=== PATIENT | female | born 1990 | race African-American/Black ===

== ENCOUNTER 2020-08-05 11:24 | Outpatient (CLI) | payer OTHER, SELFPAY | END 2020-08-05 11:25 | disposition home or self-care (01) | LOC: ANHSURGERY 11:27 | PROVIDERS: Visit Provider Obstetrics & Gynecology | DX: N80.9 Endometriosis, unspecified (principal) | CPT/HCPCS: 36415; 86850; 86900; 86901 ==

== ENCOUNTER 2020-08-12 00:31 | Outpatient (CLI) | payer OTHER, SELFPAY ==
[2020-08-12 18:12] LABS: SARS-CoV-2 RNA PCR Negative
== END 2020-08-12 00:32 | disposition home or self-care (01) ==
LOC: ANHCOVIDDT 00:32
PROVIDERS: Visit Provider Obstetrics & Gynecology
DX: Z01.812 Encounter for preprocedural laboratory examination (principal); Z20.828 Contact with and (suspected) exposure to other viral communicable diseases
CPT/HCPCS: 87635; C9803; U0003

== ENCOUNTER 2020-08-14 12:28 | Inpatient (IN) | payer OTHER, SELFPAY ==
[2020-07-30 10:40] VITALS: BMI 25.9
[2020-08-14] VITALS (15 sets, daily range): BP systolic 99–111; BP diastolic 37–72; PULSE 71–99; RESP 16–23; TEMP 36.3–37.2; O2SAT 93–100
[2020-08-14] MEDS: LACTATED RINGERS 1,000 ML 30 ML IV CONT ×2 (06:50→10:35)
[2020-08-14] MEDS: KETOROLAC 15 MG/ML VIAL (*BKC) IV PUSH (06:50)
[2020-08-14] MEDS: ACETAMINOPHEN 500 MG TABLET 1000 MG PO (06:50)
--- NOTE | 2020-08-14 07:46 | WPDANESEPPF ---
Anes - Initial Pre Proc Eval Procedure: Operation Date: 08/14/20 08:30 Proposed Procedures p Total Laparoscopic Hysterectomy - Quincy Torres MD Date/Time: 08/14/20 07:46 Surgeon: Quincy Torres MD Pre Op Diagnosis: Endometriosis Of Pelvis Patient Data Age: 29 Gender: F Height: 5 ft 2 in Weight: 62.3 kg Last Vital Signs Temp 36.3 C L 08/14/20 06:30 Pulse 71 08/14/20 06:30 Resp 18 08/14/20 06:30 BP 99/37 L 08/14/20 06:30 Pulse Ox 100 08/14/20 06:30 Allergies Allergy/AdvReac Type Severity Reaction Status Date / Time phenobarbital Allergy seizures Verified 08/14/20 07:31 Home Medications Medication Instructions Recorded Confirmed Type hydrocodone-acetaminophen 1 tablet PO Q6H PRN 07/30/20 08/14/20 History Patient hx anesthesia problems: none Family hx anesthesia problems: none PMFSH Past Medical History Medical History (Updated 08/14/20 @ 07:51 by Mike Samano MD) Endometriosis Surgical History Surgical History (Updated 08/14/20 @ 07:51 by Mike Samano MD) H/O laparoscopy History of section Social History Social History Smoking status: Never smoker Spiritual care concerns: No Anes - Eval Final PreProcedure Day of Procedure 08/14/20 07:46 Patient weight: normal Heart: regular rate and rhythm Lungs: clear to auscultation Airway: Mallampati scale class 1 Neurological: alert and oriented Last oral intake: >/= 8 hours ASA classification: II Emergent: no Anesthetic plan: proceed Anesthesia type and monitoring: general ETT and standard monitoring Informed Consent: The patient's anesthetic plan and its attendant risks and benefits were discussed with the patient/family/POA. Questions were solicited and answers provided to the satisfaction of the patient/family/POA.
--- NOTE | 2020-08-14 08:02 | WPDHPUPDATE1 ---
History and Physical Update Update Date/Time: 08/14/20 08:02 History and Physical has been reviewed, including an updated exam of the patient. There are NO changes in the patient's condition. Risks, benefits, and alternatives have been discussed and questions answered. Patient agrees to proceed with procedure.
[2020-08-14] MEDS: ceFAZolin 2 GM/D5W 50 ML 2 GM/50 ML BAG IVPB (08:32)
--- NOTE | 2020-08-14 10:34 | P.OP_ITS ---
Procedure Note - Detailed Date of procedure: 08/14/20 Pre-op diagnosis: Endometriosis Of Pelvis Myoma, menorrhagia Post-op diagnosis: same Procedure performed: Total laparoscopic hysterectomy. Description of procedure: The patient was taken to the operating room. She was prepped and draped in the dorsal lithotomy position. A speculum was placed in the vagina. The cervix was grasped with a tenaculum. Stay sutures were placed at 3 and 9:00 a.m. of 0 Vicryl. The stay sutures were brought through the Marisa up. The LEAH manipulator was placed in the vagina with a fixed Marisa cup. The cup was then pushed up around the cervix. The sutures were tied to the handle of the LEAH manipulator. A 5 mm incision was made on the abdominal skin of the left upper quadrant using a scalpel. A 5 mm trocar was inserted into the intra-abdominal cavity under direct visualization the scope. Pneumoperitoneum was achieved. An 11 mm incision was made in the left lower quadrant of the abdomen with a scalpel. A 11 mm trocar was inserted into the intra-abdominal cavity under direct visualization the scope. A 5 mm periumbilical incision was made. A 5 mm scope was placed into the intra-abdominal cavity under direct visualization of the scope. The suspensory ligament of the ovary was cauterized and transected with ligature cautery in a bilateral fashion. The fallopian tubes were cauterized and transected in a bilateral fashion with LigaSure cautery. The round ligaments were cauterized and transected in bilateral fashion with LigaSure cautery. The round ligaments were cauterized and transected bilaterally with LigaSure cautery. The broad ligaments were cauterized and transected along the lateral aspects of the uterus down the level of the uterine arteries. A bladder flap was created using sharp and blunt dissection. The ureters were dissected out bilaterally down to the level of the uterine arteries. They could be visualized from the pelvic brim down the uterine arteries. Staying very close to the c ervix the parametrium was cauterized transected in a stepwise fashion down to the level of the Marisa cup. The Bladder flap was moved distally over the Marisa cup using sharp and blunt dissection. The impression of the entire cup was visualized around the cervix. An incision was made with unipolar cautery down under the Marisa cup creating a colpotomy incision all the way around the cervix. The uterus tubes and ovaries were taken out through the vagina. A pneumo occluder was placed in the vagina. The vagina was closed with 0 V lock suture in a running fashion. The ureters were identified again and found to be intact to the level of the uterine arteries. The pelvis was irrigated with a copious amount of antibiotic irrigation. The pneumoperitoneum was reduced. The trocars were removed. The skin was closed subcuticular 4 Monocryl covered with Dermabond. The pneumo occluder was removed from the vagina. The vagina was irrigated with Betadine. The patient tolerated the procedure well. She was taken to the recovery room in stable condition. Sponge lap and needle counts were correct x2. Anesthesia: GETA Surgeon: Quincy Torres MD Estimated blood loss (mL): 200 Drains: No Packing: No Pathology: yes Complications: No immediate complications Condition: stable Disposition: PACU Findings: Grossly normal appearing tubes and ovaries. Uterus - enlarged
[2020-08-14] MEDS: fentaNYL CITRATE INJ (*CRX) 100 MCG/2 ML VIAL 25 MCG IV PUSH (11:28)
--- NOTE | 2020-08-14 12:01 | SUR.PHASEI ---
1139-REPORT FAXED TO FLOOR, STAFF ([facility]) AWARE AND WILL INFORM RN. 1200-RECALLED OB ([facility]), RN BUSY.
[2020-08-14] MEDS: SODIUM CHLORIDE 0.9% IV 1,000 ML 125 ML IV CONT ×2 (13:21→19:56)
[2020-08-14] MEDS: KETOROLAC 30 MG/ML VIAL (*BKC) IV PUSH ×2 (13:22→19:53)
[2020-08-14] MEDS: ONDANSETRON INJ 4 MG/2 ML VIAL IV PUSH ×2 (16:01→22:42)
[2020-08-14] MEDS: HYDROcodone/acetaminophen (*CRX) 10-325 MG TABLET 1 TAB PO (16:16)
--- NOTE | 2020-08-14 18:28 | PC.NURSE ---
Pt admitted to room 289 per bed from PACU after lap assisted vaginal hyst today with Dr. Torres. Pt is alone at this time; admitted to room; staffing and procedures explained; pt sleepy, but responding appropriately; VSS and assessment WNL.
--- NOTE | 2020-08-14 18:51 | PC.NURSE ---
1730 pt states she didn't want to eat anything at this time; no supper ordered; pt had emesis at 1720 and states felt better afterward; will restart po fluids slowly.
[2020-08-14] MEDS: fentaNYL CITRATE INJ (*CRX) 100 MCG/2 ML VIAL 50 MCG IV PUSH ×2 (18:59→22:42)
[2020-08-14] MEDS: SIMETHICONE 80 MG TAB.CHEW (19:22)
[2020-08-15 00:30] VITALS: BP 101/61; PULSE 83; RESP 16; TEMP 37.4; O2SAT 100
[2020-08-15] MEDS: fentaNYL CITRATE INJ (*CRX) 100 MCG/2 ML VIAL 50 MCG IV PUSH (03:53)
[2020-08-15 04:00] VITALS: BP 109/66; PULSE 73; RESP 16; TEMP 37.2; O2SAT 98
[2020-08-15 08:25] VITALS: BP 107/67; PULSE 75; RESP 18; TEMP 37.2; O2SAT 99
[2020-08-15] MEDS: KETOROLAC 30 MG/ML VIAL (*BKC) IV PUSH (09:11)
--- NOTE | 2020-08-15 09:18 | WPDANESPN ---
Anes - Prog Note Post-Op Date/Time: 08/15/20 09:18 Cardiovascular status: normal Respiratory status: normal Airway patency: baseline Mental status: baseline Post-Op hydration status: normal Vital Signs: Last Vital Signs Temp 37.2 C 08/15/20 04:00 Pulse 73 08/15/20 04:00 Resp 16 08/15/20 04:00 BP 109/66 08/15/20 04:00 Pulse Ox 98 08/15/20 04:00 Pain Score (VAS): 0 I/O: Intake & Output 08/14/20 08/15/20 08/15/20 23:59 07:59 15:59 Intake Total 1500 300 Output Total 760 1000 Balance 740 -700 Post-procedural complaints: none Patient Feedback: Patient satisfied with anesthetic care.
--- NOTE | 2020-08-15 12:00 | WPDHPUPDATE1 ---
History and Physical Update Update Date/Time: 08/15/20 12:00 History and Physical has been reviewed, including an updated exam of the patient. There are NO changes in the patient's condition. Risks, benefits, and alternatives have been discussed and questions answered. Patient agrees to proceed with procedure.
--- NOTE | 2020-09-06 07:51 | PM.DS ---
DS: Admitting Diagnosis Admitting Diagnosis Admitting Diagnosis: Endometriosis Of Pelvis DS: Discharge Diagnosis Discharge Diagnosis (1) Menorrhagia: Code(s): N92.0 - Excessive and frequent menstruation with regular cycle Status: Acute DS: Summary Hospital Course Reason for hospitalization: total laparoscopic hysterectomy Hospital Course: unremarkable, she is hospitalized for less than 24 hours. She was afebrile, her pain was well controlled, she was ambulating, tolerating p.o., passing flatus at appropriate times. Status at Discharge Functional status at discharge: independent ambulation Time Spent with Patient Time attestation: Total time spent providing and/or coordinating discharge services: Time spent: Less than 30 minutes DS: Data Data Completed and Pending Completed studies during hospitalization: Pending at discharge 08/14/20 09:37 Surgical [PTH] Routine Discharge Plan Discharge Discharging Clinician: Quincy Torres Patient Disposition: Home, Self-Care Activity: pelvic rest Diet: regular Patient Instructions: Hysterectomy (DC) Stand Alone Forms: General Discharge Information Follow-up/Referrals: Quincy Torres MD [Physician] - Discharge Medications: New hydrocodone-acetaminophen 5-325 mg tablet 1 - 2 tablet PO Q4H PRN (Reason: pain) Qty: 25 RF: 0 Discontinued hydrocodone-acetaminophen 5-325 mg tablet 1 tablet PO Q6H PRN (Reason: Pain) RF: 0 Date of admission: 08/14/20 12:28 Primary Care Provider: ElenitaHolli Admitting Provider: Quincy Torres Attending physician on admission: Quincy Torres Condition: Stable
== END 2020-08-15 12:14 | disposition home or self-care (01) | DRG 513 ==
LOC: ANHOB2 13:19
PROVIDERS: Admitting Provider Obstetrics & Gynecology; PCP Internal Medicine Infectious Disease; Visit Provider Obstetrics & Gynecology
PROC: 0UT9FZZ Resection of Uterus, Via Natural or Artificial Opening With Percutaneous Endoscopic Assistance (ICD-10-PCS; principal; 2020-08-14 08:30)
DX: N80.3 Endometriosis of pelvic peritoneum (principal); N92.0 Excessive and frequent menstruation with regular cycle; T83.32XA Displacement of intrauterine contraceptive device, initial encounter
CPT/HCPCS: 88307; A9270; J0690; J1100; J1170; J1885; J2250; J2405; J2704; J2710; J3010; J7030; J7120

== ENCOUNTER → 2021-03-05 07:09 | Outpatient (CLI) | payer OTHER, SELFPAY ==
[2021-03-05 18:21] LABS: SARS-CoV-2 RNA PCR Negative
== END ==
PROVIDERS: Visit Provider Obstetrics & Gynecology
DX: Z20.822 Contact with and (suspected) exposure to COVID-19 (principal)
CPT/HCPCS: C9803; U0003; U0005

== ENCOUNTER 2021-09-04 11:00 | Outpatient (RCR) | payer OTHER, SELFPAY ==
--- NOTE | 2021-07-22 12:13 | PTOPEVAL ---
INITIAL PHYSICAL THERAPY EVALUATION and PLAN OF CARE Thank you for referring Sharmaine Ortiz to [facility] [place] [facility] [place] Sharmaine is scheduled to be seen for physical therapy? 2x/week for 2 weeks, 1x/wk x 4 wks. Please review, sign, date and return this plan of care PANCHITO. I agree with and certify that the following plan of care is medically necessary. Referring Physician Date Admitting Provider: Attending Provider: Cassidy Bishop, GRILL ASSOCIATE Referring Provider: *PT Outpatient Evaluation Start: 07/22/21 10:42 Freq: Status: Active Protocol: Document 07/22/21 10:43 DALLIN (Rec: 07/22/21 12:13 DALLIN [id number]) Therapy Assessment Status Assessment Status Assessment Status Evaluation Outpatient Past Medical History Past Medical History Source of Past Medical History Recalled from Previous Visit, Confirmed with Patient/Family Neurological History Hx Seizures Yes: DURING ONLY- 2007 Cardiovascular History Hx Cardiac Disorders No Significant History Respiratory History Hx Asthma Yes: CHILD Gastrointestinal History Hx Gastrointestinal Disorders No Significant History Genitourinary History Hx Urinary Tract Infection Yes Musculoskeletal History Hx Musculoskeletal Disorders No Significant History Hematological History Hx Hematological Disorders No Significant History Endocrine History Hx Endocrine Disorders No Significant History HEENT History Hx HEENT Disorders No Significant History Integumentary History Hx Skin Disorders No Significant History Reproductive History Hx Section Yes: X3 Hx Endometriosis Yes: DX LAPAROSCOPY Hx Hysterectomy Yes: 08/2020 Hx Tubal Ligation Yes Psychosocial History Hx Psychiatric Disorders No Significant History Pain History History of Any Previous or Ongoing No Significant History Instance of Pain Anesthesia History Hx Anesthesia Reactions No Significant History Evaluation Information Problem Diagnosis chronic pelvic pain of female, pelvic and perineal pain, deep dyspareunia, Onset 2013 Subjective Information Had IUD - it turned - was in Query Text:As Reported By Patient/ incorrect position - needed to Family have it removed - that's when pain began. Initially thought pain was from endometriosis - surgery didn't help - it returned - then hysterectomy - still having the discomfort - returned
--- NOTE | 2021-07-22 16:20 | PTOPEVAL ---
INITIAL PHYSICAL THERAPY EVALUATION and PLAN OF CARE Thank you for referring Sharmaine Ortiz to [facility].? Sharmaine is scheduled to be seen for physical therapy? 2x/week for 2 weeks, 1x/wk x 4 wks. Please review, sign, date and return this plan of care PANCHITO. I agree with and certify that the following plan of care is medically necessary. Referring Physician Date Admitting Provider: Attending Provider: Cassidy Bishop, KNAPSACK SPRAYER Referring Provider: *PT Outpatient Evaluation Start: 07/22/21 10:42 Freq: Status: Active Protocol: Document 07/22/21 10:43 DALLIN (Rec: 07/22/21 12:13 DALLIN [id number]) Therapy Assessment Status Assessment Status Assessment Status Evaluation Outpatient Past Medical History Past Medical History Source of Past Medical History Recalled from Previous Visit, Confirmed with Patient/Family Neurological History Hx Seizures Yes: DURING ONLY- 2007 Cardiovascular History Hx Cardiac Disorders No Significant History Respiratory History Hx Asthma Yes: CHILD Gastrointestinal History Hx Gastrointestinal Disorders No Significant History Genitourinary History Hx Urinary Tract Infection Yes Musculoskeletal History Hx Musculoskeletal Disorders No Significant History Hematological History Hx Hematological Disorders No Significant History Endocrine History Hx Endocrine Disorders No Significant History HEENT History Hx HEENT Disorders No Significant History Integumentary History Hx Skin Disorders No Significant History Reproductive History Hx Section Yes: X3 Hx Endometriosis Yes: DX LAPAROSCOPY Hx Hysterectomy Yes: 08/2020 Hx Tubal Ligation Yes Psychosocial History Hx Psychiatric Disorders No Significant History Pain History History of Any Previous or Ongoing No Significant History Instance of Pain Anesthesia History Hx Anesthesia Reactions No Significant History Evaluation Information Problem Diagnosis chronic pelvic pain of female, pelvic and perineal pain, deep dyspareunia, Onset 2013 Subjective Information Had IUD - it turned - was in Query Text:As Reported By Patient/ incorrect position - needed to Family have it removed - that's when pain began. Initially thought pain was from endometriosis - surgery didn't help - it returned - then hysterectomy - still having the discomfort - returned
--- NOTE | 2021-08-05 11:23 | PCPTNOTE ---
Patient did not show up for scheduled appointment this date. Phone call made - no answer, no voice mail set up.
--- NOTE | 2021-08-07 11:57 | PCPTNOTE ---
Patient did not show up for scheduled appointment this date. Called pt - phone unable to accept calls at this time. No voice mail.
--- NOTE | 2021-08-26 08:15 | PCPTNOTE ---
Pt called this morning to cancel 8am appt. per racing secretary.
--- NOTE | 2021-09-04 11:37 | PCPTNOTE ---
Patient did not show up for scheduled appointment this date. This was her re-evaluation date. If we do not hear from her, will d/c her from PT.
--- NOTE | 2021-09-16 08:36 | PCPTNOTE ---
PHYSICAL THERAPY DISCHARGE SUMMARY Admitting Provider: Attending Provider: Cassidy Bishop, HEALTH CARE SPECIALIST Patient:Sharmaine Ortiz Date of :1990 Sharmaine has not returned for any further treatments since 08/21/2021, therefore she will be discharged at this time. Patient?s initial visit was on 07/22/2021 10:30 and she had a total of 3 visits. She cancelled 2 visits and did not show for 4 visits including her re-evaluation. The goals have not been met. She did received short term relief of discomfort with treatment but was very inconsistent with attending PT treatment. Thank you for referring Sharmaine to [facility]. Please review, sign, date and return this discharge summary PANCHITO. I have been updated about Sharmaine's current status and I agree with discharge from the above service at this time. Referring Physician Date
== END 2021-09-16 11:53 | disposition home or self-care (01) ==
LOC: ANHPT 11:00
PROVIDERS: Visit Provider Nurse Practitioner Obstetrics & Gynecology
DX: R10.2 Pelvic and perineal pain (principal)
CPT/HCPCS: 97014; 97140; 97162; G0283

== ENCOUNTER 2021-12-23 09:51 | Outpatient (CLI) | payer OTHER, SELFPAY ==
--- NOTE | ~2021-12-23 | MMUS_ITS ---
EXAMINATION: MM diagnostic shruthi LT w denisse, US breast LT limited HISTORY: Palpable left breast abnormality TECHNIQUE: Additional 3-D tomosynthesis images of the left breast were performed and synthetic 2-D im ages were generated. CAD analysis was submitted and interpreted. High resolution Limited left breast ultrasound was performed. COMPARISON: None BREAST PARENCHYMAL COMPOSITION: The breasts are extremely dense, which lowers the sensitivity of mamm ography FINDINGS: MAMMOGRAPHIC FINDINGS: There are no suspicious masses, calcifications or architectural distortion in the left breast to sugg est malignancy. ULTRASOUND: Complete US of all 4 quadrants of the the left breast and retroareolar region was reviewed. Normal he terogeneous echotexture without focal mass. IMPRESSION: 1. No evidence for malignancy in the left breast. BI-RADS Category 1: Negative Reviewed, dictated and finalized at location A. IC HEALTH PROFESSOR IMPRESSION: 1. No evidence for malignancy in the left breast. BI-RADS Category 1: Negative
== END 2021-12-23 09:52 | disposition home or self-care (01) ==
LOC: ANHIMG 09:53
PROVIDERS: Visit Provider Nurse Practitioner Obstetrics & Gynecology
DX: N63.20 Unspecified lump in the left breast, unspecified quadrant (principal)
CPT/HCPCS: 76642; 77061; 77065; G0279

== ENCOUNTER 2023-09-16 11:00 | Outpatient (RCR) | payer OTHER, SELFPAY ==
--- NOTE | 2023-09-02 10:47 | OPREHPOC ---
Outpatient Therapy Plan of Care This is a Multidisciplinary Plan of Care that may contain components documented by all disciplines (PT, OT, and ST.) PT Problem 1 PT Problem #1 Knowledge Deficit PT Goal 1 Goal 1. Patient will perform independent HEP 2. Patient will verbalize urge suppression strategies Target Visit 5 PT Problem 2 PT Problem #2 Pain PT Goal 1 Goal 1. Patient will tolerate 1 finger circumferential pelvic floor stretch with pain no higher than 2/10 2. Patient able to walk and do all ADL's with pain no higher than 2/10 Target Visit 5 PT Problem 3 PT Problem #3 Impaired Functional ADLs PT Goal 1 Goal 1. Patient will be able to sit to drive without needing to dross puller due to pain 2. Patient will void no more than 8 times a day and 1 time at night Target Visit 5
--- NOTE | 2023-09-02 10:48 | PTOPEVAL1 ---
Assessment and note entered by Vicki Reilly DPT Evaluation Information Assessment Status Evaluation Subjective Information Pt reports pelvic pain and previous PT. Pt reports sharp pain with intercourse. Highest pain recently 8/10 and lowest 4/10. Pain also increases with sitting for a long period of time, walking for too long, or laying in 1 position for too long . Urinates more than 10 times a day and 5-6 times at night. Denies pain with urination but does feel pressure. Denies incontinence. Can hold urge 30- 60 minutes. BM 3 times a week without pain but reports she has to sit and strain a lot. Reports her pelvic pain started in 2013 after using an IUD and has also been diagnosed with endometriosis, has had 1 laparascopic procedure and had a partial hysterectomy in 2019. Pt has been 3 times, 3 C-sections. Had seizures while with her first. Has also had a lot of pain with pap smears and reports physicians have had difficulty completing the exam. 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 Unable to exercise regularly because of the pain and trouble lifting things like her child. Returns to [place] next year. Patient goal: decrease pain to a manageable level Reported Pain Level Pain Score 3: Self Report Assessment PT Clinical Summary The patient is presenting to skilled therapy with a chronic history of pelvic pain and increased urinary frequency. She presents with significantly increased pelvic floor muscle tone, pain with palpation, and abdominal scar tissue which are contributing to her pain and difficulty with activities including sitting to drive. She will highly benefit from therapy to address her impairments in order to reduce pain, reduce frequency of urination, and improve function. Plan of Care Interventions Electrical Stimulation,Hot Pack/Cold Pack,Manual Therapy,Neuro Re-education,Patient/Caregiver Education,Therapeutic Activities,Therapeutic Exercise PT Services Indicated Yes Treatment Frequency and 1 time a week for 4 weeks Duration These treatments will address the objective and functional deficits as defined above. The patient will be advanced safely and appropriately in order for the patient to progress towards his/her prior level of function. Additional exercises
--- NOTE | 2023-09-28 10:51 | PCPTNOTE ---
Patient did not show up for appointment scheduled 09/28/23.
--- NOTE | 2023-11-05 09:58 | PTOPDC ---
Assessment and note entered by Vicki Reilly, DPT Evaluation Information Assessment Status Discharge - Pt Not Present Subjective Information - Assessment PT Clinical Summary Patient has not attended therapy since 09/16/23. Her case will be discharged this date. Plan of Care PT Services Indicated No
== END 2023-11-05 14:27 | disposition home or self-care (01) ==
LOC: ANHPT 11:00
PROVIDERS: Visit Provider Nurse Practitioner Obstetrics & Gynecology
DX: N94.10 Unspecified dyspareunia (principal)
CPT/HCPCS: 97110; 97140; 97162; 99199

== ENCOUNTER 2024-06-07 00:35 | Day surgery (SDC) | payer OTHER, SELFPAY ==
--- NOTE | 2024-06-01 13:10 | PC.NURSE ---
Report to the Outpatient Waiting Room, entrance under the green pavilion located off [facility], at time 1230 on date 06/07/24. Planned Procedure Time: 1430. Time changes happen often and if your time is changed the preop area will call you the afternoon before. - You and your visitor will be asked to self-screen and do not enter if you have any COVID symptoms. - A mask is optional within the hospital at this time. Patients may have clear liquids (water, carbonated beverages, clear teas, apple juice) until 3 hours prior to surgery with a maximum of 20 ounces. 1130 - No food from midnight until time of surgery - Infants may have breast milk until 4 hours before surgery, formula 6 hours prior to surgery. - Children will be allowed to drink immediately following surgery. If applicable, please bring a bottle or sippy cup to assist with drinking. Juice, water, soda, and popsicles are readily available. For infants on formula, please bring formula the day of surgery. Pacifiers are allowed. Take the following medications with a SIP of water the morning of surgery: inhalers, estradiol DO NOT STOP ANY OF YOUR OTHER PRESCRIPTION MEDICATIONS PRIOR TO SURGERY ?EXCEPT THE FOLLOWING Medications to discontinue per physician azelastine, cetirizine, flonase, montelukast- hold the morning of surgery Date to take last dose Please no make-up, nail singaporean, hairspray, perfume, deodorant, or body powder the day of surgery. No jewelry (including any body piercings) or valuables the day of surgery, leave them at home. Please take a shower or bath the night before, or the morning of, surgery with an antibacterial soap. Wear comfortable, loose fitting clothing. Children are encouraged to wear pajamas. - Jewelry must be removed prior to entering the operating room. Rings and piercings that are not removed may be cut off. - The hospital will not accept responsibility for valuables. - Please leave all valuables, including medications, at home the day of surgery. If you are going home after surgery, a licensed medical delivery driver must drive you home. - NO public transportation without another adult if you receive anesthesia. - We recommend that an adult stay with you for 24 hours following discharge. - We also recommend that you do not drive, make important decision, drink alcoholic beverages, or take any drugs that were not prescribed by your health care provider for at least 24 hours after your discharge time. For Pediatric surgeries, we recommend two adults accompany the child home. Follow any additional instructions given to you from your surgeon. If you or anyone in your household have experienced Covid symptoms in the past week, please notify your surgeon or the nurse liaison at the phone number below for possible testing. Telephone instructions given to Patient- Sharmaine Isabel) and asked if any additional questions and then verbalized understanding. Patient advised to call surgeon office or pre surgery nurse liaison [phone] if any additional questions.
[2024-06-01 13:19] VITALS: BMI 27.6
[2024-06-07] VITALS (8 sets, daily range): BP systolic 105–134; BP diastolic 58–73; PULSE 65–94; RESP 16–24; TEMP 36.6–37.1; O2SAT 98–100; BMI 27.6
[2024-06-07] MEDS: ACETAMINOPHEN 500 MG TABLET 1000 MG PO (13:04)
[2024-06-07] MEDS: LACTATED RINGERS 1,000 ML 30 ML IV CONT ×2 (13:04→14:53)
[2024-06-07] MEDS: KETOROLAC 15 MG/ML VIAL (*BKC) IV PUSH (13:05)
--- NOTE | 2024-06-07 13:16 | PM.IMHP ---
H&P: HPI History of Present Illness Date/Time: 06/07/24 13:16 Chief Complaint: Pelvic pain , hydrosalpinx Narrative: 33-year-old female with pelvic pain, history of endometriosis, and a hydrosalpinx. We agreed to perform diagnostic laparoscopy and bilateral salpingectomy. The patient understands the details of the procedure. The procedure has been explained in detail. She understands the risks. She understands that injuries may occur that result in hospitalization, more surgery, and severe illness. She understands risk of hemorrhage and infection. She denies any chest pain or shortness of breath. She denies any nausea, vomiting, fever, chills. Review of Systems Review of Systems: All systems reviewed & are unremarkable except as noted in HPI and below Constitutional: Constitutional: Denies chills, Denies fatigue, Denies fever(s) and Denies weakness Eyes: Eyes: Denies blurry vision, Denies change in vision, Denies loss of peripheral vision, Denies loss of vision, Denies other visual disturbances and Denies eye pain ENT: Denies vertigo, Denies dizziness, Denies hearing loss, Denies mouth pain, Denies nasal obstruction, Denies neck mass and Denies neck pain Cardiovascular: Cardiovascular: Denies chest pain, Denies diaphoresis, Denies syncope, Denies leg edema and Denies dyspnea Respiratory: Respiratory: Denies chest congestion, Denies cough, Denies hemoptysis, Denies dyspnea and Denies wheezing Gastrointestinal: Gastrointestinal: Denies abdominal pain, Denies constipation, Denies diarrhea, Denies nausea and Denies vomiting Genitourinary: Genitourinary: Denies hematuria, Denies change in libido, Denies nocturia, Denies genital lesions, Denies flank pain and Denies urinary urgency Musculoskeletal: Musculoskeletal: Denies abnormal gait, Denies back pain, Denies myalgias, Denies arthralgias, Denies joint swelling, Denies muscle weakness and Denies neck pain Integumentary/Breasts: Skin/Breast: Denies swelling, Denies breast pain, Denies breast mass, Denies dry skin, Denies nipple discharge, Denies unusual bruising and Denies jaundice Neurologic: Denies Neuro-related abnormal movements, Denies Abnormal speech present, Denies abnormal gait, Denies behavioral changes, Denies confusion, Denies vertigo, Denies dizziness, Denies syncope, Denies loss of vision, Denies memory loss, Denies convulsions and Denies weakness Psychiatric: Psychiatric: Denies abnormal sleep pattern, Denies behavioral changes, Denies change in libido, Denies confusion, Denies depression, Denies anhedonia and Denies memory loss Endocrine: Endocrine: Reports no additional endocrine complaints, Denies change in libido and Denies fatigue Hematologic/Lymphatic: Hematologic/Lymphatic: Reports no additional hematologic/lymphatic complaints Allergic/Immunologic: Allergic/Immunologic: Reports no additional allergic/immunologic complaints and Denies wheezing PMFSH Past Medical History Medical History (Updated 06/07/24 @ 13:18 by Goyo Torres MD) Endometriosis Surgical History Surgical History (Updated 08/14/20 @ 07:51 by Mike Samano MD) H/O laparoscopy History of section Social History Social History Smoking status: Never smoker Alcohol intake: never Substance use: never Substance use type: does not use Gender identity (if verbalized by the patient): Female Sexual Orientation (if Verbalized by the Patient): Straight or Heterosexual Spiritual care concerns: No Meds Home Medications and Allergies Home Medications Medication Instructions Recorded Confirmed Type albuterol sulfate 90 mcg/actuation 2 inh inhalation Q4-5H PRN sob 06/01/24 06/01/24 History aerosol inhaler azelastine 137 mcg (0.1 %) nasal 2 spray intranasal BID 06/01/24 06/01/24 History spray cetirizine 10 mg tablet 10 mg PO DAILY 06/01/24 06/01/24 History estradiol 1 mg tablet (Estrace) 1 mg PO DA
--- NOTE | 2024-06-07 13:18 | WPDHPUPDATE1 ---
History and Physical Update Update Date/Time: 06/07/24 13:18 History and Physical has been reviewed, including an updated exam of the patient. There are NO changes in the patient's condition. Risks, benefits, and alternatives have been discussed and questions answered. Patient agrees to proceed with procedure.
--- NOTE | 2024-06-07 13:35 | WPDANESEPPF ---
Anes - Initial Pre Proc Eval Procedure: Operation Date: 06/07/24 14:30 Proposed Procedures p Diagnostic Laparoscopy with Bilateral Salpingectomy - Goyo Torres MD Date/Time: 06/07/24 13:35 Surgeon: Goyo Torres MD Pre Op Diagnosis: hydrosalpinx Patient Data Age: 33 Gender: F Height: 1.57 m Weight: 68.5 kg Last Vital Signs Temp 98.8 F 06/07/24 12:46 Pulse 65 06/07/24 12:46 Resp 18 06/07/24 12:46 BP 134/73 06/07/24 12:46 Pulse Ox 99 06/07/24 12:46 Allergies Allergy/AdvReac Type Severity Reaction Status Date / Time phenobarbital Allergy seizures Verified 06/07/24 12:37 Home Medications Medication Instructions Recorded Confirmed Type albuterol sulfate 90 mcg/actuation 2 inh inhalation Q4-5H PRN sob 06/01/24 06/01/24 History aerosol inhaler azelastine 137 mcg (0.1 %) nasal 2 spray intranasal BID 06/01/24 06/01/24 History spray cetirizine 10 mg tablet 10 mg PO DAILY 06/01/24 06/01/24 History estradiol 1 mg tablet (Estrace) 1 mg PO DAILY 06/01/24 06/01/24 History fluticasone propionate 110 2 inh inhalation BID 06/01/24 06/01/24 History mcg/actuation HFA aerosol inhaler montelukast 10 mg tablet 10 mg PO DAILY 06/01/24 06/01/24 History Patient hx anesthesia problems: none Family hx anesthesia problems: none Results Review: All pre-operative results and documents have been reviewed as part of the pre-operative evaluation. [facility] Past Medical History Medical History (Updated 06/07/24 @ 13:18 by Goyo Torres MD) Endometriosis Surgical History Surgical History (Updated 08/14/20 @ 07:51 by Mike Samano MD) H/O laparoscopy History of section Social History Social History Smoking status: Never smoker Alcohol intake: never Substance use: never Substance use type: does not use Gender identity (if verbalized by the patient): Female Sexual Orientation (if Verbalized by the Patient): Straight or Heterosexual Spiritual care concerns: No Anes - Eval Final PreProcedure Day of Procedure 06/07/24 13:35 Patient weight: normal Heart: regular rate and rhythm Lungs: clear to auscultation Airway: Mallampati scale class II Neurological: alert and oriented Last oral intake: >/= 8 hours ASA classification: II Emergent: no Anesthetic plan: proceed Anesthesia type and monitoring: general ETT and standard monitoring Results Review: All pre-operative results and documents have been reviewed as part of the pre-operative evaluation. Informed Consent: The patient's anesthetic plan and its attendant risks and benefits were discussed with the patient/family/POA. Questions were solicited and answers provided to the satisfaction of the patient/family/POA.
--- NOTE | 2024-06-07 14:40 | W.PM.PROC2 ---
Procedure Note - Detailed Date of Procedure 06/07/24 Pre-op Diagnosis hydrosalpinx, pelvic pain Post-op Diagnosis Same ( left ovarian cyst) Procedure Performed Laparoscopic bilateral salpingectomy, left ovarian cystectomy Surgeon Goyo Torres MD Anesthesia General Indications Unwanted fertility Findings bilateral hydrosalpinx, left ovarian cyst, status post TLH Description of Procedure The patient was taken the operating room. She was prepped and draped in the dorsal lithotomy position after induction of general anesthesia. A 5 mm skin incision was made in the left upper quadrant of the abdominal skin. A 5 mm trocar was inserted the intra-abdominal cavity under direct visualization of the scope. Pneumoperitoneum was achieved. A 5 mm trocar was inserted in the left lower quadrant identical fashion. A 5 mm infraumbilical trocar was inserted in identical fashion as well. The bilateral fallopian tubes were removed. This was done by using a LigaSure cautery. The mesosalpinx adjacent to the tube was cauterized transected with LigaSure. This was initiated in the area the ovary and in a stepwise fashion moved medially to the area of the cornu of the uterus. Once there the fallopian tube was cauterized and transected. This was done in identical fashion on each side. The fallopian tubes were taken out through the left lower quadrant trocar site. left ovarian cystectomy performed using scissors and cautery. The cyst was reduced and marsupialized. The pneumoperitoneum was reduced. The trocars removed. The skin was closed with subcuticular 4 Monocryl and covered with Dermabond. She was taken to cover stable condition. Sponge lap and needle counts were correct x2. Estimated Blood Loss 5 Drains No Packing No Pathology Yes Complications No immediate complications Condition Stable Disposition PACU
[2024-06-07] MEDS: fentaNYL CITRATE INJ (*CRX) 100 MCG/2 ML VIAL 25 MCG IV PUSH ×3 (14:55→16:15)
[2024-06-07] MEDS: oxyCODONE HCL (*CRX) 5 MG TAB IR PO (16:41)
== END 2024-06-07 17:19 | disposition home or self-care (01) ==
PROVIDERS: Visit Provider Obstetrics & Gynecology
PROC: (CPT 49320; principal; 2024-06-07 14:30)
DX: N70.11 Chronic salpingitis (principal); N83.8 Other noninflammatory disorders of ovary, fallopian tube and broad ligament; Z79.51 Long term (current) use of inhaled steroids
CPT/HCPCS: 58661; 58662; 88302; A9270; J1100; J1885; J2250; J2405; J2704; J3010; J7120

== ENCOUNTER 2024-07-13 12:09 | Outpatient (CLI) | payer OTHER, SELFPAY ==
--- NOTE | ~2024-07-13 | XR_ITS ---
Supine and upright views of the abdomen Clinical history: Constipation Findings: Bowel gas pattern is nonspecific. No evidence for obstruction or free air. No abnormal mass lesion or calcification is seen. Osseous structures are intact. Impression: No significant abnormality is seen. Moderate stool burden. Reviewed, dictated and finalized at [facility]. Impression: No significant abnormality is seen. Moderate stool burden.
[2024-07-13 13:13] LABS: Hematocrit 37.1 % (37.0-47.0); Hemoglobin 12.4 g/dL (12.0-15.0); Mean Corpuscular HGB Conc 33.4 g/dl (32-36); Mean Corpuscular Hemoglobin 31.9 pg (26-34); Mean Corpuscular Volume 95.4 fl (80-100); Mean Platelet Volume 11.2 fl (7.4-10.4); Platelet Count Result 261 k/mm3 (150-375); Red Blood Count 3.89 M/mm3 (4.2-5.4); Red Cell Distribution Width 13.5 % (11.5-14.5); White Blood Count 7.2 K/mm3 (4.5-10.0)
[2024-07-13 13:45] LABS: Alanine Aminotransferase 14 U/L (6-35); Albumin Level 4.1 g/dL (3.5-5.1); Alkaline Phosphatase 103 U/L (38-126); Anion Gap 9 mmol/L (4-12); Aspartate Amino Transferase 22 U/L (14-36); Bilirubin,Total 0.2 mg/dL (0.2-1.3); Blood Urea Nitrogen 7 mg/dL (7-17); Carbon Dioxide 27 mmol/L (22-30); Chloride 103 mmol/L (98-107); Estimated Glomerular Filt Rate > 60; Glucose 69 mg/dL (65-110); Potassium 3.5 mmol/L (3.4-5.0); Sodium 139 mmol/L (137-145)
[2024-07-13 14:22] LABS: Thyroid Stimulating Hormone 0.776 uIU/mL (0.465-4.680)
== END 2024-07-13 12:10 | disposition home or self-care (01) ==
LOC: ANHIMG 12:11
PROVIDERS: PCP Obstetrics & Gynecology; Visit Provider Nurse Practitioner Family
DX: K59.00 Constipation, unspecified (principal); R14.0 Abdominal distension (gaseous)
CPT/HCPCS: 36415; 74018; 80053; 84443; 85027

== ENCOUNTER 2024-10-19 18:16 | Emergency (ER) | payer OTHER, SELFPAY ==
--- NOTE | ~2024-10-19 | XR_ITS ---
EXAMINATION: XR chest 2V DATE: 10/19/2024 19:59 INDICATION: Dyspnea. Left chest pain. TECHNIQUE: Frontal and lateral views of the chest were obtained. COMPARISON: None. FINDINGS: There is no pneumonia, pleural effusion, or pneumothorax. The heart size is normal. IMPRESSION: 1. No acute cardiopulmonary disease. Reviewed, dictated and finalized at location [facility]. [employer]
[2024-10-19 18:24] VITALS: BP 110/58; PULSE 76; RESP 16; TEMP 36.4; O2SAT 100
[2024-10-19 20:06] LABS: Basophils Percent Auto 0.4 % (0.2-1.2); Eosinophils Absolute Auto 0.1 K/mm3 (0-0.3); Eosinophils Percent Auto 0.8 % (0-4.4); Hematocrit 35.6 % (37.0-47.0); Immature Granulocyte Absolute 0.03 K/mm3 (0.00-0.031); Immature Granulocyte Percent A 0.3 % (0-0.5); Lymphocytes Absolute Auto 3.25 K/mm3 (0.9-3.2); Lymphocytes Percent Auto 35.4 % (18.3-44.2); Mean Corpuscular HGB Conc 33.7 g/dl (32-36); Mean Corpuscular Hemoglobin 31.6 pg (26-34); Mean Corpuscular Volume 93.7 fl (80-100); Mean Platelet Volume 10.8 fl (7.4-10.4); Monocytes Absolute Auto 0.6 K/mm3 (0.1-0.6); Monocytes Percent Auto 6.4 % (2.6-8.5); Neutrophils Absolute Auto 5.2 K/mm3 (1.3-6.7); Neutrophils Percent Auto 56.7 % (45.5-73.1); Platelet Count Result 237 k/mm3 (150-375); Red Cell Distribution Width 13.4 % (11.5-14.5); White Blood Count 9.2 K/mm3 (4.5-10.0)
[2024-10-19 20:09] LABS: Alanine Aminotransferase 21 U/L (6-35); Albumin Level 4.1 g/dL (3.5-5.1); Alkaline Phosphatase 94 U/L (38-126); Anion Gap 5 mmol/L (4-12); Aspartate Amino Transferase 24 U/L (14-36); Bilirubin,Total 0.2 mg/dL (0.2-1.3); Blood Urea Nitrogen 6 mg/dL (7-17); Calcium 8.8 mg/dL (8.4-10.2); Carbon Dioxide 26 mmol/L (22-30); Chloride 107 mmol/L (98-107); Estimated CRCL calculation 102 ml/min; Estimated Glomerular Filt Rate > 60; Glucose 99 mg/dL (65-110); Potassium 3.9 mmol/L (3.4-5.0); Sodium 138 mmol/L (137-145)
[2024-10-19 21:18] VITALS: BP 115/64; PULSE 83; RESP 18; TEMP 36.9; O2SAT 100
== END 2024-10-19 21:48 | disposition left against medical advice (07) ==
LOC: ANHED 21:33
PROVIDERS: Emergency Provider Student in an Organized Health Care Education/Training Program; PCP Obstetrics & Gynecology
DX: R06.02 Shortness of breath (principal)
CPT/HCPCS: 36415; 71046; 80053; 85025; 99199